=== PATIENT | female | born 1995 | race Two or more races ===

== ENCOUNTER 2023-01-02 17:04 | Emergency (ER) | payer OTHER ==
[~2023-01-02] VITALS: Ht 162.6 cm; Wt 70.3 kg
[2023-01-02 17:20] VITALS: BP 118/76
[2023-01-02] MEDS ORDERED: PREN-96 PO (19:20)
== END 2023-01-02 17:46 | disposition short-term general hospital (02) ==
LOC: ER 17:04
DX: O26.892 Other specified pregnancy related conditions, second trimester (principal); Z3A.23 23 weeks gestation of pregnancy

== ENCOUNTER 2023-01-02 17:31 | Observation (INO) | payer OTHER ==
[2023-01-02 19:01] LABS: Alcohol, Urine < 3.0 mg/dL (0-10); Amphetamine Screen, Urine NEGATIVE (NEGATIVE); Barbiturate Scree,Urine NEGATIVE (NEGATIVE); Benzodiazephine Screen, Urine NEGATIVE (NEGATIVE); Cannabinoid Screen, Urine NEGATIVE (NEGATIVE); Cocaine Screen, Urine NEGATIVE (NEGATIVE); Opiate Scree,Urine NEGATIVE (NEGATIVE); Phencyclidine Screen, Urine NEGATIVE (NEGATIVE)
[2023-01-02 19:02] LABS: Urine Bacteria NONE SEEN /hpf (None Seen); Urine Blood Negative /uL (Negative); Urine Mucus FEW (None Seen); Urine WBC 3 /hpf (0 - 5)
[2023-01-02] MEDS ORDERED: PREN-96 PO (19:20)
== END 2023-01-02 19:50 | disposition home or self-care (01) ==
LOC: LDRP 17:31
PROVIDERS: ADMIT Obstetrics & Gynecology; ATTEND Obstetrics & Gynecology
DX: O42.912 Preterm premature rupture of membranes, unspecified as to length of time between rupture and onset of labor, second trimester (principal); Z3A.23 23 weeks gestation of pregnancy
CPT/HCPCS: 59025; 76805; 80307; 81001; 84112; 94760; G0378; Q0114